=== PATIENT | female | born 1935 | race Two or more races ===

== ENCOUNTER 2017-03-19 13:15 | Emergency (ER) | payer OTHER ==
[2017-03-19 13:39] VITALS: TEMP 98.2; BMI 25.2
[2017-03-19] MEDS ORDERED: IBUPROFEN 400 MG TABLET (FP) PO ONE ×2 (14:05→14:12)
--- NOTE | 2017-03-19 14:05 | PDOC ---
History of Present Illness - General Chief Complaint: Pain Stated Complaint: RAPID RESPONSE Time Seen by Provider: 03/19/17 13:40 History Source: Patient Exam Limitations: No Limitations - History of Present Illness Initial Comments: CHIEF COMPLAINT: 82 y/o afebrile female with shoulder and knee pain s/p fall in the hospital. HISTORY OF PRESENT ILLNESS: The patient states her shoe got stuck on the floor and she fell into her hands and knees. She now has right knee and shoulder pain. She denies head trauma, LOC, neck pain, changes in vision/hearing, n/v/d , dizziness, palpitations, CP, SOB, abd pain, numbness/tingling in extremities. She is not on a blood thinner. Vital signs on arrival are within normal limits. REVIEW OF SYSTEMS: GENERAL/CONSTITUTIONAL: No fever/chills. No weakness. No weight change. HEAD, EYES, EARS, NOSE AND THROAT: No change in vision. No ear pain or discharge. No sore throat. CARDIOVASCULAR: No chest pain or shortness of breath. RESPIRATORY: No cough, wheezing, or hemoptysis. GASTROINTESTINAL: No abd pain, nausea, vomiting, diarrhea. GENITOURINARY: No dysuria, frequency, or change in urination. MUSCULOSKELETAL: +right shoulder pain and right knee pain. No neck or back pain. SKIN: No rash or easy bruising. NEUROLOGIC: No headache, vertigo, loss of consciousness, or loss of sensation. PHYSICAL EXAM: GENERAL: The patient is awake, alert, and fully oriented, in no acute distress. She is very well appearing, ambulatory, in NAD or obvious discomfort. HEAD: Normal with no signs of trauma. NECK: No midline cervical spine TTP or step offs. ENT: Pupils equal, round and reactive to light, extraocular movements intact, sclera anicteric, conjunctiva clear. Neck supple. LUNGS: Clear to auscultation bilaterally. Normal excursion. No respiratory distress or use of accessory muscles. CV: RRR, S1/S2, no MRG. Cap refill < 2 sec. ABDOMEN: Soft, non-distended, non-tender even to deep palpation, no hepatomegaly or splenomegaly, no masses. EXTREMITIES: Pain with abduction of right arm > 90 degrees. Pain with palpation of right AC joint. No swelling to right shoulder. No tenting or crepitus of right clavicle. Right knee pain with ecchymosis on the right anterior patella. Pain with palpation of medial right joint line and on ecchymotic area of patella. No edema, erythema or warmth to right knee. NEUROLOGICAL: Normal speech, normal gait. CN II-XII grossly intact. PSYCH: Normal mood, normal affect. SKIN: Warm, dry, normal turgor, no rashes or lesions noted. Past History - Past Medical History Allergies/Adverse Reactions: Allergies Allergy/AdvReac Type Severity Reaction Status Date / Time No Known Drug Allergies Allergy Verified 03/19/17 13:38 Home Medications: Ambulatory Orders Ascorbate Calcium [Vitamin C] 500 mg PO DAILY 03/19/17 Diabetes: Yes - Surgical History Cholecystectomy: Yes - Psycho/Social/Smoking Cessation Hx Suicidal Ideation: No Smoking History: Former smoker Have you smoked in the past 12 months: No Information on smoking cessation initiated: No Hx Alcohol Use: No Drug/Substance Use Hx: No Substance Use Type: None *Physical Exam - Vital Signs Last Vital Signs Temp Pulse Resp BP Pulse Ox 98.2 F 62 17 156/76 100 03/19/17 13:25 03/19/17 13:25 03/19/17 13:25 03/19/17 13:25 03/19/17 13:25 Medical Decision Making - Medical Decision Making A/P: 82 y/o afebrile female with right shoulder and knee pain s/p fall. Plan is as follows: 1. Right shoulder xray 2. Right knee xray 3. PO motrin Right and left shoulder xray IMPRESSION: Degenerative findings Right knee pain IMPRESSION: No acute pathology. Gave the patient her results. She states she feels better after motrin. Will wrap right knee with CRISTHIAN bandage. Suggested she take Motrin at home for pain every 6 hours for pain with food. Instructed her to apply ice to all painful areas and follow up with Dr. Carter this week. Provided an Ortho referral should her pain continue for more than 1 week. The patient was instructed to return to the ER with any worsening or concerning symptoms. The patient verbalizes understanding of all instructions, has no further questions and is awaiting discharge. *DC/Admit/Observation/Transfer Diagnosis at time of Disposition: Right knee pain Qualifiers: Chronicity: acute Qualified Code(s): M25.561 - Pain in right knee Shoulder pain, bilateral Qualifiers: Chronicity: acute Qualified Code(s): M25.511 - Pain in right shoulder; M25.512 - Pain in left shoulder Fall Qualifiers: Encounter type: initial encounter Qualified Code(s): W19.XXXA - Unspecified fall, initial encounter - Discharge Dispostion Disposition: HOME Condition at time of disposition: Good - Referrals Referrals: Rodger Huffman MD [Staff Physician] - 1 week Derek Carter MD [Primary Care Provider] - Call tomorrow - Patient Instructions Printed Discharge Instructions: How to Prevent Falls, DI for Shoulder Pain, DI for Knee Pain, How To Perform RICE (Rest, Ice, Compress, Elevate) Additional Instructions: Discharge Instructions: -All of your xrays were negative for broken bones -Please use the CRISTHIAN bandage on your knee for comfort -Follow RICE instructions for your knee and shoulder pain -Take 400mg of Motrin with food every 6 hours with food for pain -Call Dr. Carter tomorrow to schedule follow up appointment -Call Dr. Huffman in 1 week if you are still having pain -Return to the ER with any worsening or concerning symptoms.
[2017-03-19 16:40] VITALS: BP 137/89; PULSE 77
== END 2017-03-19 17:00 | disposition home or self-care (01) ==
LOC: JER 13:15
DX: M25.561 Pain in right knee (principal); M25.511 Pain in right shoulder; E11.9 Type 2 diabetes mellitus without complications; W01.0XXA Fall on same level from slipping, tripping and stumbling without subsequent striking against object, initial encounter; Y93.89 Activity, other specified; Y92.238 Other place in hospital as the place of occurrence of the external cause
CPT/HCPCS: 73030-TC-LT; 73030-TC-RT; 73560-TC-RT; 99282-25

== ENCOUNTER 2017-11-12 09:19 | Day surgery (SDC) | payer OTHER ==
[2017-11-11 13:05] VITALS: BMI 27.0
[2017-11-12 10:05] VITALS: TEMP 97.9
[2017-11-12] MEDS ORDERED: LIDOCAINE HCL 1%, 10 MG/ML (20ML VIAL) ONE (10:40)
[2017-11-12] MEDS ORDERED: BUPIVACAINE HCL/PF 0.25% (2.5MG/ML) 10 ML VIAL ONE (10:41)
[2017-11-12] MEDS ORDERED: BETAMET ACET/BETAMET NA PH 30 MG/5 ML VIAL ONE (10:41)
[2017-11-12] MEDS ORDERED: PROPOFOL 20 ML ONE (10:47)
[2017-11-12] MEDS ORDERED: LIDOCAINE HCL/PF 2% SDV 5ML VIAL ONE (10:47)
[2017-11-12] MEDS ORDERED: IOHEXOL 180 MG/1 ML ML IJ ONE (11:04)
[2017-11-12] MEDS ORDERED: BUPIVACAINE HCL/PF 0.25% (2.5MG/ML) 10 ML VIAL IJ ONE (11:04)
[2017-11-12] MEDS ORDERED: BETAMET ACET/BETAMET NA PH 30 MG/5 ML VIAL IM ONE (11:04)
[2017-11-12] MEDS ORDERED: LIDOCAINE HCL 1%, 10 MG/ML (20ML VIAL) INF ONE (11:04)
--- NOTE | 2017-11-12 13:16 | PROC ---
Procedure Note Procedure: Date of service:11/12/2017 Preoperative Diagnosis: Low back pain and lumbar radiculopathy on Left Postoperative Diagnosis: Same Procedure Performed: Lumbar Epidural Steroid Injection (LESI) on Left L4-5 with dye under Fluoroscopy Anesthesia: Local / MAC Anesthesiologist: Procedure: I discussed with the patient in detail about the risks, benefits, and alternatives to treatment not only limited to infection, headache, numbness , weakness, and injury to nerves, blood vessels and muscles. The patient understood, agreed and signed the written consent. The patient was placed in the prone position with the head, abdomen and legs supported with the pillows. The lumbosacral area was prepped and draped with Betadine times three in a sterile fashion. Lumbar vertebrae were identified under the C-arm. At L4-5 level on the Left side, 3 ml of 1 % Lidocaine was infiltrated into the skin and subcutaneous tissue. A 3 inch, #20 gauge Tuohy needle was advanced to the epidural space with loss of resistance technique under fluoroscopic guidance. Aspiration was negative for cerebrospinal fluid and blood. 2ml of Omnipaque ( radio-opaque dye) was injected to confirm the tip of the needle into epidural space and spread of dye. There was no CSF or vascular spread. The spread of dye was noted cranially and caudally on epidurogram. Aspiration was done again which was negative. A solution of 2.5 ml of Celestone 2.5 ml of 0.25% Marcaine and a total of 5 ml was injected slowly. While Tuohy needle was withdrawn 2.0 ml of 1 % Lidocaine was infiltrated. Bleeding was checked. Betadine was wiped off. A sterile bandage was placed. The patient tolerated the procedure well. There were no immediate complications. The patient was transferred to the recovery room. The patient was observed for some time and discharged as per ASU criteria. The patient was told to apply ice at the injection site. Follow up appointment was given and also call my office at [phone]. If there is any problem, call my office or report to Emergency Room. Feliciano Henderson M.D.
[2017-11-12 13:43] VITALS: BP 156/77; PULSE 78
== END 2017-11-12 12:45 | disposition home or self-care (01) ==
LOC: JASU-SURG 09:19
PROVIDERS: ATTEND Physical Medicine & Rehabilitation
PROC: 3E0R33Z Introduction of Anti-inflammatory into Spinal Canal, Percutaneous Approach (ICD-10-PCS; 2017-11-12)
PROC: B01BYZZ Fluoroscopy of Spinal Cord using Other Contrast (ICD-10-PCS; 2017-11-12)
PROC: 3E0R3BZ Introduction of Anesthetic Agent into Spinal Canal, Percutaneous Approach (ICD-10-PCS; principal; 2017-11-12 10:30)
DX: M54.16 Radiculopathy, lumbar region (principal); M54.5 Low back pain
CPT/HCPCS: 76000-TC-FY; 82962

== ENCOUNTER 2021-05-25 09:51 | Inpatient (IN) | payer OTHER ==
[2021-05-25] MEDS ORDERED: ACETAMINOPHEN 1000 MG/100 ML VIAL (NON FORMULARY) IVPB ONE ×2 (10:45→16:58)
[2021-05-25] MEDS ORDERED: ACETAMINOPHEN INJECTION 100 ML IVPB ONE ×2 (10:59→17:14)
[2021-05-25 11:12] LABS: BASO % 0.3 % (0-2.0); HEMATOCRIT 38.3 % (32.4-45.2); HEMOGLOBIN 12.9 GM/dL (10.7-15.3); LYMPH % 5.6 % (8-40); MCH 29.8 pg (25.7-33.7); MCHC 33.7 g/dl (32.0-36.0); MEAN CELL VOLUME 88.3 fl (80-96); MEAN PLT VOLUME 9.2 fl (7.5-11.1); MONO % 4.4 % (3.8-10.2); NEUT % 89.7 % (42.8-82.8); PLATELET COUNT 248 10^3/uL (134-434); RBC 4.34 M/mm3 (3.60-5.2); RDW 13.8 % (11.6-15.6); WHITE BLOOD COUNT 18.5 K/mm3 (4.0-10.0)
[2021-05-25 11:23] LABS: INR 1.04 (0.83-1.09); PROTHROMBIN TIME (PATIENT) 12.8 SEC (9.7-13.0)
[2021-05-25 11:24] LABS: CHLORIDE 103 mmol/L (98-107); SODIUM 137 mmol/L (136-145)
[2021-05-25 11:26] LABS: ACTIVATED PTT 30.5 SECONDS (25.2-36.5); CALCIUM 8.8 mg/dL (8.5-10.1)
[2021-05-25 11:27] LABS: ALBUMIN 3.6 g/dl (3.4-5.0); ANION GAP 9 MMOL/L (8-16); BLOOD UREA NITROGEN 13.2 mg/dL (7-18); CO2 25 mmol/L (21-32); GLUCOSE,RANDOM 211 mg/dL (74-106); LIPASE 41 U/L (73-393)
[2021-05-25 11:30] LABS: CREATININE 0.9 mg/dL (0.55-1.3); SGOT/AST 12 U/L (15-37); SGPT/ALT 16 U/L (13-61)
[2021-05-25 11:31] LABS: BILIRUBIN,TOTAL 1.2 mg/dL (0.2-1); TOT PROT 7.4 g/dl (6.4-8.2)
[2021-05-25 11:33] LABS: ALK PHOS 122 U/L (45-117)
[2021-05-25] MEDS ORDERED: LACTATED RINGERS SOLUTION 1000 ML INFUS.BAG IV ONE (12:12)
[2021-05-25 12:51] LABS: EPI CELLS 4 /uL (0-25.1); HYALINE CASTS 0 /uL (0-3.1); PH,URINE 7.5 (5.0-8.0); URINE APPEARANCE CLEAR; URINE BACTERIA 11 /uL (0-1359); URINE BILIRUBIN NEGATIVE (NEGATIVE); URINE COLOR YELLOW; URINE GLUCOSE (UA) TRACE (NEGATIVE); URINE KETONE TRACE (NEGATIVE); URINE LEUK ESTERASE 1+ (NEGATIVE); URINE NITRITE NEGATIVE (NEGATIVE); URINE PROTEIN NEGATIVE (NEGATIVE); URINE RBC 39 /uL (0-23.9); URINE UROBILINOGEN 0.2 mg/dL (0.2-1.0); URINE WBC 94 /uL (0-25.8)
[2021-05-25] MEDS ORDERED: PIPERACILLIN/TAZOB 4.5 GM 4.5 GM in DEXTROSE 5%-WATER - 100 ML IVPB ONE (13:01)
[2021-05-25] MEDS ORDERED: PIPERACILLIN/TAZOB 4.5 GM 4.5 GM/100 ML BAG IVPB ONE (14:00)
[2021-05-25] MEDS ORDERED: BUPIVACAINE HCL/PF 0.5% (5MG/ML) 10 ML VIAL ONE (15:12)
[2021-05-25] MEDS ORDERED: SODIUM CHLORIDE 1,000 ML IV SCH ×2 (15:15→16:54)
[2021-05-25] MEDS ORDERED: morphine SULFATE 4 MG/ML VIAL IVPUSH PRN (15:15)
[2021-05-25] MEDS ORDERED: MORPHINE SULFATE 2 MG/ML VIAL IVPUSH PRN ×2 (15:15→16:54)
[2021-05-25] MEDS ORDERED: ROCURONIUM BROMIDE 50 MG/5 ML SYRINGE ONE (15:28)
[2021-05-25] MEDS ORDERED: fentaNYL CITRATE 250 MCG/5 ML VIAL ONE (15:28)
[2021-05-25] MEDS ORDERED: DESFLURANE GAS 240 ML BOTTLE IH ONE (15:28)
[2021-05-25] MEDS ORDERED: PROPOFOL 20 ML ONE (15:28)
[2021-05-25] MEDS ORDERED: DEXAMETHASONE SOD PHOSPHATE 4 MG/1 ML VIAL ONE ×2 (15:28→15:47)
[2021-05-25] MEDS ORDERED: BUPIVACAINE HCL/PF 0.5% (5MG/ML) 10 ML VIAL IJ ONE (15:55)
[2021-05-25] MEDS ORDERED: NEOSTIGMINE METHYLSULFATE 0.5 MG/ML - 10 ML MDV ONE (16:19)
[2021-05-25] MEDS ORDERED: GLYCOPYRROLATE 0.2 MG/1 ML VIAL ONE ×2 (16:19)
[2021-05-25] MEDS ORDERED: INSULIN SLIDING SCALE (NOVOLOG) 1 VIAL SQ SCH (16:30)
[2021-05-25] MEDS ORDERED: ONDANSETRON 4 MG/2 ML VIAL IVPUSH PRN (16:57)
[2021-05-25] MEDS ORDERED: LACTATED RINGERS SOLUTION 1,000 ML IV SCH (17:00)
[2021-05-25 20:18] VITALS: BMI 23.2
[2021-05-25] MEDS: INSULIN SLIDING SCALE (NOVOLOG) 1 VIAL SQ SCH (22:05)
[2021-05-25] MEDS ORDERED: ACETAMINOPHEN 1000 MG/100 ML VIAL (NON FORMULARY) IVPB PRN (23:00)
[2021-05-26] MEDS: INSULIN SLIDING SCALE (NOVOLOG) 1 VIAL SQ SCH ×2 (06:03→11:23)
[2021-05-26 09:32] LABS: HEMATOCRIT 36.4 % (32.4-45.2); HEMOGLOBIN 12.3 GM/dL (10.7-15.3); MCH 30.4 pg (25.7-33.7); MCHC 33.9 g/dl (32.0-36.0); MEAN CELL VOLUME 89.6 fl (80-96); MEAN PLT VOLUME 9.5 fl (7.5-11.1); PLATELET COUNT 251 10^3/uL (134-434); RBC 4.06 M/mm3 (3.60-5.2); RDW 13.7 % (11.6-15.6); WHITE BLOOD COUNT 13.9 K/mm3 (4.0-10.0)
[2021-05-26] MEDS: traMADol HCL 50 MG TABLET PO PRN ×2 (09:44→15:47)
[2021-05-26] MEDS ORDERED: ENALAPRIL MALEATE 5 MG TABLET PO SCH ×2 (10:00)
[2021-05-26] MEDS ORDERED: ENOXAPARIN NA (PORCINE) 40 MG/0.4 ML DISP.SYRIN SQ SCH ×2 (10:00)
[2021-05-26 10:14] LABS: BLOOD UREA NITROGEN 11.9 mg/dL (7-18); CALCIUM 8.7 mg/dL (8.5-10.1)
[2021-05-26 10:15] LABS: MAGNESIUM 2.2 mg/dL (1.8-2.4)
[2021-05-26 10:17] LABS: CREATININE 0.9 mg/dL (0.55-1.3)
[2021-05-26 10:18] LABS: ALBUMIN 3.2 g/dl (3.4-5.0); PHOSPHOROUS 3.2 mg/dL (2.5-4.9)
[2021-05-26 10:19] LABS: TOT PROT 6.9 g/dl (6.4-8.2)
[2021-05-26 10:25] LABS: BILIRUBIN,TOTAL 0.7 mg/dL (0.2-1)
[2021-05-26 14:44] VITALS: BP 145/62; PULSE 61; TEMP 98.1
== END 2021-05-26 17:18 | disposition home or self-care (01) | DRG 343 ==
LOC: JER 09:51 → JERBED 12:59 → J6S 18:34
PROVIDERS: ADMIT Internal Medicine; ATTEND Internal Medicine
PROC: 0DTJ4ZZ Resection of Appendix, Percutaneous Endoscopic Approach (ICD-10-PCS; principal; 2021-05-25 19:30)
DX: K35.80 Unspecified acute appendicitis (principal); K57.30 Diverticulosis of large intestine without perforation or abscess without bleeding; R10.31 Right lower quadrant pain; I10 Essential (primary) hypertension; E11.9 Type 2 diabetes mellitus without complications; R63.0 Anorexia; Z68.23 Body mass index [BMI] 23.0-23.9, adult
CPT/HCPCS: 36415; 74177-TC; 80053; 81003; 82550; 82962; 83605; 83690; 83735; 84100; 84484; 85025; 85027; 85610; 85730; 86850; 86900; 86901; 87086; 93005; 93010; 94760; 97116-GP; 97162-GP; 99285-25; C9803; J0131; U0003; U0005